=== PATIENT | female | born 1950 | race Caucasian/White ===

== ENCOUNTER 2017-06-10 11:02 | Day surgery (SDC) | payer MEDICARE, MEDICAID ==
[~2017-06-10 11:02] MED LIST: HEPARIN SODIUM 1,000 UNIT/1ML VIAL IV ONE; NICARDIPINE 100MCG/ML 10ML VIAL (CATH LAB) IV ONE; NITROGLYCERIN 50MCG/ML 10ML VIAL (CATH LAB) IV ONE
[2017-06-10] MEDS ORDERED: LIDOCAINE HCL 1% 20ML VIAL (Pyxis) INJ ONE (11:46)
[2017-06-10] MEDS ORDERED: IODIXANOL 320MG/ML 100 ML BOTTLE IV ONE ×2 (11:46→13:48)
[2017-06-10] MEDS ORDERED: FENTANYL CITRATE/PF 50MCG/ML 2ML VIAL ONE (12:28)
[2017-06-10] MEDS ORDERED: MIDAZOLAM HCL 2 MG/2 ML VIAL ONE (12:28)
[2017-06-10] MEDS ORDERED: LEVO125T8 PO (12:40)
[2017-06-10] MEDS ORDERED: HYDR100T26 PO (12:40)
[2017-06-10] MEDS ORDERED: LIP40 PO (12:40)
[2017-06-10] MEDS ORDERED: METO1TAB26 PO (12:40)
[2017-06-10] MEDS ORDERED: ASPI-986 PO (12:40)
[2017-06-10] MEDS ORDERED: HYDR-4134 PO (12:40)
[2017-06-10] MEDS ORDERED: LISI10TA5 PO (12:40)
[2017-06-10] MEDS ORDERED: novalog (12:40)
[2017-06-10] MEDS ORDERED: INSU100V3 SUBCUT (12:40)
[2017-06-10] MEDS ORDERED: ACETAMINOPHEN 325MG TABLET PO PRN (14:30)
[2017-06-10] MEDS ORDERED: ATROPINE SULFATE 1MG/10ML SYR IV PRN (14:30)
== END 2017-06-10 17:43 | disposition home or self-care (01) ==
LOC: CCL 11:02
PROVIDERS: ATTEND Specialist
DX: I25.10 Atherosclerotic heart disease of native coronary artery without angina pectoris (principal); I11.9 Hypertensive heart disease without heart failure; E11.9 Type 2 diabetes mellitus without complications; E78.5 Hyperlipidemia, unspecified; E03.8 Other specified hypothyroidism; E66.9 Obesity, unspecified; Z79.4 Long term (current) use of insulin; Z79.82 Long term (current) use of aspirin; Z79.899 Other long term (current) drug therapy; Z79.84 Long term (current) use of oral hypoglycemic drugs
CPT/HCPCS: 82962; 93458; 99152; 99153; C1769; C1887; C1893; J1644; J2250; J3010; J3490; Q9967; J7030